=== PATIENT | female | born 1990 | race Asian ===

== ENCOUNTER 2022-07-26 17:39 | Emergency (ER) | payer SELFPAY ==
[~2022-07-26] VITALS: Ht 162.6 cm; Wt 40.8 kg
[2022-07-26 17:59] VITALS: BP 95/49
[2022-07-26] MEDS ORDERED: KETOROLAC TROMETHAMINE 15 MG/ML VIAL ONE (21:02)
[2022-07-26] MEDS ORDERED: IBUP-1955 PO (21:23)
[2022-07-26] MEDS ORDERED: BENZ-13 PO (21:23)
--- NOTE | 2022-07-26 21:29 | NUR ---
Patient discharged to home in stable condition. Written and verbal after care instructions given. Patient verbalizes understanding of instruction.
[2022-07-26] MEDS ORDERED: KETOROLAC TROMETHAMINE INJ 30 MG/ML VIAL IM ONE (21:30)
== END 2022-07-26 21:31 | disposition home or self-care (01) ==
LOC: ER 17:45
DX: U07.1 COVID-19 (principal); J06.9 Acute upper respiratory infection, unspecified
CPT/HCPCS: 99283; 87426; 96372; 87804; J1885; C9803